=== PATIENT | male | born 1975 | race Asian ===

== ENCOUNTER → 2023-07-02 13:42 | Outpatient (REF) | payer OTHER, SELFPAY | LOC: RAD 13:42 | PROVIDERS: ATTENDING PHYSICIAN Family Medicine | DX: R22.0 Localized swelling, mass and lump, head (principal) | CPT/HCPCS: 93970 ==

== ENCOUNTER → 2023-08-12 17:38 | Outpatient (REF) | payer OTHER, SELFPAY | LOC: MRI 17:38 | PROVIDERS: ATTENDING PHYSICIAN Surgery Vascular Surgery; FAMILY PHYSICIAN Family Medicine | DX: H02.843 Edema of right eye, unspecified eyelid (principal); R22.0 Localized swelling, mass and lump, head | CPT/HCPCS: 70543; A9575 ==